=== PATIENT | male | born 1980 | race Caucasian/White ===

== ENCOUNTER 2020-02-17 18:56 | Emergency (ER) | payer OTHER ==
[2020-02-17] MEDS ORDERED: Clindamycin CAP* 150 MG PO ONE (20:31)
--- NOTE | 2020-02-17 20:38 | ED ---
Skin Complaint - HPI Summary HPI Summary: 39-year-old male presents with rash to the back in the past 4 days. He states area is more swollen. Area is very painful. Patient does have a history of an abscess to his neck. This does not look similar. He had two ticks two weeks but not in this location. He denies any fevers or chills. No chest pressure or shortness of breath. No cough. no recent travel. no exposure to anyone with known covid. He has a history of smoking. - History of Current Complaint Chief Complaint: EDRashSkinAbscess Time Seen by Provider: 02/17/20 20:05 Stated Complaint: ABCESS ON BACK PER PT Pain Intensity: 8 - Allergy/Home Medications Allergies/Adverse Reactions: Allergies Allergy/AdvReac Type Severity Reaction Status Date / Time No Known Allergies Allergy Verified 02/17/20 19:05 Home Medications: Home Medications Albuterol HFA INHALER* [Ventolin HFA Inhaler*] 2 puff INH Q6H PRN 02/17/20 [ History Confirmed 02/18/20] Clindamycin Cap(NF) [Clindamycin Cap 300 mg Cap(NF)] 300 mg PO TID #29 cap 02/16 [Rx Confirmed 02/18/20] Testosterone Cypionate 125 mg IM WEEKLY 02/18/20 [History Confirmed 02/18/20] PMH/Surg Hx/FS Hx/Imm Hx Endocrine/Hematology History: Denies: Hx Anticoagulant Therapy Respiratory History: Denies: Hx Asthma Infectious Disease History: No Infectious Disease History: Denies: Traveled Outside the [place] in Last 30 Days - Family History Known Family History: Positive: Non-Contributory - Social History Alcohol Use: None Substance Use Type: Reports: None 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 Smoking Status (MU): Former Smoker Review of Systems Negative: Fever Negative: Chest Pain Negative: Shortness Of Breath Positive: Rash All Other Systems Reviewed And Are Negative: Yes Physical Exam Triage Information Reviewed: Yes Vital Signs On Initial Exam: Initial Vitals Temp Pulse Resp BP Pulse Ox 99.8 F 97 18 169/101 91 02/17/20 19:02 02/17/20 19:02 02/17/20 19:02 02/17/20 19:02 02/17/20 19:02 Vital Signs Reviewed: Yes Appearance: Positive: Well-Appearing Skin: Positive: Warm, Dry, Other - white and purplish tissue surrouding by induration and erythema to back Head/Face: Positive: Normal Head/Face Inspection Eyes: Positive: Normal, Conjunctiva Clear ENT: Positive: Pharynx normal Respiratory/Lung Sounds: Positive: Clear to Auscultation, Breath Sounds Present Cardiovascular: Positive: Normal, RRR Musculoskeletal: Positive: Normal Neurological: Positive: Normal Psychiatric: Positive: Normal Procedures - Sedation Patient Received Moderate/Deep Sedation with Procedure: No - Incision and Drainage back Site: back Anesthesia: Local Instrument(s): Needle Diagnostics - Vital Signs Vital Signs Temp Pulse Resp BP Pulse Ox 02/17/20 19:02 99.8 F 97 18 169/101 91 - Laboratory Lab Statement: Any lab studies that have been ordered have been reviewed, and results considered in the medical decision making process. Course/Dx - Course Course Of Treatment: 39-year-old male presents with rash to the back in the past 4 days. He states area is more swollen. Area is very painful. Patient does have a history of an abscess to his neck. This does not look similar. He had two ticks two weeks but not in this location. He denies any fevers or chills. No chest pressure or shortness of breath. No cough. no recent travel. no exposure to anyone with known covid. He has a history of smoking. On exam lungs clear auscultation. Oxygen is between 91 and 94. he is not actively short of breath and is obese and smoker so this is likely his baseline. Has 3cm by 4cm area with whitish and purplish skin with erythema and induration around. Attempted a needle aspiration did not get anything beside blood. Debrided the area got some pus like discharge along with clear drainage. We'll have follow-up with care conditions or wound clinic. Will place on clindamycin. patient understands and agrees plan. - Differential Diagnoses - Skin Complaint Differential Diagnoses: Abscess, Cellulitis, Contact Dermatitis - Diagnoses Provider Diagnoses: Abscess of back - Critical Care Time Critical Care Statement: Critical care time is provided exclusive of any time spent performing procedures. Discharge ED - Sign-Out/Discharge Documenting (check all that apply): Patient Departure - Discharge Plan Condition: Good Disposition: HOME Prescriptions: Clindamycin Cap(NF) [Clindamycin Cap 300 mg Cap(NF)] 300 mg PO TID #29 cap Patient Education Materials: Abscess (ED) Referrals: Cooper Chicas MD [Medical Doctor] - [facility] [Outside] Additional Instructions: Take antibiotic three times a day for 10 days, first dose given in ED Apply warm compresses to area Take ibuprofen or Tylenol for pain every 6 hours Follow up with care [facility] or wound clinic Return to ED if develop fever, area of redness spreads, or any new or worsening symptoms - Billing Disposition and Condition Condition: GOOD Disposition: Home - Attestation Statements Provider Attestation: I was available for consultation for this patient. I did not evaluate the patient or participate in any medical decision making or disposition decisions unless I am specifically named in the chart as having consulted on the patient. If I have consulted on the patient, please see my own ED note on the patient encounter. Jaun Dhaliwal MD
[2020-02-17 20:44] VITALS: BP 140/104
== END 2020-02-17 20:56 | disposition home or self-care (01) ==
LOC: EDBD → ED 18:56
DX: L02.212 Cutaneous abscess of back [any part, except buttock and flank] (principal); R21 Rash and other nonspecific skin eruption; Z87.891 Personal history of nicotine dependence; Z79.890 Hormone replacement therapy; Z79.899 Other long term (current) drug therapy
CPT/HCPCS: 10060; 87070; 87077; 87205; 99282; A9270-GY

== ENCOUNTER 2020-02-18 19:16 | Emergency (ER) | payer OTHER ==
[2020-02-18] MEDS ORDERED: Clindamycin 600 MG/D5W BAG(*) 600 MG/50 ML BAG IV ONE (23:29)
--- NOTE | 2020-02-18 23:53 | ED ---
Skin Complaint - HPI Summary HPI Summary: 39-year-old male returns for recheck of his wound of his back. He states that the rash has not been spreading more. He states he may have had a fever last night. He does not currently have a fever. no chills. no chest pain or SOB. no cough. area has been draining yellow discharge. took clindamycin for a day. is not diabetic. is former IV drug user. - History of Current Complaint Chief Complaint: EDRashSkinAbscess Time Seen by Provider: 02/18/20 23:13 Stated Complaint: FEVER/PAIN IN BACK PER PT Pain Intensity: 4 - Allergy/Home Medications Allergies/Adverse Reactions: Allergies Allergy/AdvReac Type Severity Reaction Status Date / Time No Known Allergies Allergy Verified 02/17/20 19:05 Home Medications: Home Medications Albuterol HFA INHALER* [Ventolin HFA Inhaler*] 2 puff INH Q6H PRN 02/17/20 [ History Confirmed 02/18/20] Clindamycin Cap(NF) [Clindamycin Cap 300 mg Cap(NF)] 300 mg PO TID #29 cap 02/16 [Rx Confirmed 02/18/20] Testosterone Cypionate 125 mg IM WEEKLY 02/18/20 [History Confirmed 02/18/20] PMH/Surg Hx/FS Hx/Imm Hx Endocrine/Hematology History: Denies: Hx Anticoagulant Therapy Respiratory History: Denies: Hx Asthma Infectious Disease History: No Infectious Disease History: Denies: Traveled Outside the [place] in Last 30 Days - Family History Known Family History: Positive: Non-Contributory - Social History Alcohol Use: None Substance Use Type: Reports: None 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 Smoking Status (MU): Former Smoker Review of Systems Negative: Fever Negative: Chest Pain Negative: Shortness Of Breath Positive: Rash All Other Systems Reviewed And Are Negative: Yes Physical Exam Triage Information Reviewed: Yes Vital Signs On Initial Exam: Initial Vitals Temp Pulse Resp BP Pulse Ox 98.2 F 84 18 152/86 91 02/18/20 19:18 02/18/20 19:18 02/18/20 19:18 02/18/20 19:18 02/18/20 19:18 Vital Signs Reviewed: Yes Appearance: Positive: Well-Appearing Skin: Positive: Warm, Dry, Other - 4cm by 5cm area of erythema to back with induration, no flutuance felt Head/Face: Positive: Normal Head/Face Inspection Eyes: Positive: Normal, Conjunctiva Clear Respiratory/Lung Sounds: Positive: Clear to Auscultation, Breath Sounds Present Cardiovascular: Positive: Normal, RRR Musculoskeletal: Positive: Normal Neurological: Positive: Normal Psychiatric: Positive: Normal Procedures - Sedation Patient Received Moderate/Deep Sedation with Procedure: No Diagnostics - Vital Signs Vital Signs Temp Pulse Resp BP Pulse Ox 02/18/20 22:12 97.3 F 77 16 135/105 92 02/18/20 19:18 98.2 F 84 18 152/86 91 - Laboratory Result Diagrams: 02/18/20 23:53 Lab Statement: Any lab studies that have been ordered have been reviewed, and results considered in the medical decision making process. Course/Dx - Course Course Of Treatment: 39-year-old male returns for recheck of his wound of his back. He states that the rash has not been spreading more. He states he may have had a fever last night. He does not currently have a fever. no chills. no chest pain or SOB. no cough. area has been draining yellow discharge. took clindamycin for a day. is not diabetic. is former IV drug user. on exam has 4cm by 5cm area of erythema and induration to left side of back. no flatulence. area does not appear any worst than yesterday. attempted to get labs and unable to get cbc. as vitals stable and does not appear any worst while have continue clindamycin. will have apply bacitrician to wound. told follow up with wound clinic or [facility]. patient understand and agrees with plan. - Differential Diagnoses - Skin Complaint Differential Diagnoses: Abscess, Cellulitis, Contact Dermatitis - Diagnoses Provider Diagnoses: Cellulitis of back - Critical Care Time Critical Care Statement: Critical care time is provided exclusive of any time spent performing procedures. Discharge ED - Sign-Out/Discharge Documenting (check all that apply): Patient Departure - Discharge Plan Condition: Good Disposition: HOME Referrals: [facility] [Outside] Additional Instructions: continue antibiotic Apply bacitrician to area Follow up with wound clinic: phone number is [phone] or [facility] Return to ED if develop any new or worsening symptom - Billing Disposition and Condition Condition: GOOD Disposition: Home
[2020-02-19 00:26] LABS: Albumin 4.4 g/dL (3.2-5.2); CO2 Carbon Dioxide 34 mmol/L (22-32); Calcium 9.1 mg/dL (8.6-10.3); Chloride 95 mmol/L (101-111); Sodium 133 mmol/L (135-145)
[2020-02-19 00:32] LABS: ALT 25 U/L (7-52); Albumin/Globulin Ratio 1.1 (1-3); Alkaline Phosphatase 67 U/L (34-104); BUN/Creatinine Ratio 12.8 (8-20); Blood Urea Nitrogen 11 mg/dL (6-24); C Reactive Protein 134.59 mg/L (<8.01); EGFR African American 119.8 (>60); Glucose 79 mg/dL (70-100); Total Protein 8.4 g/dL (6.4-8.9)
[2020-02-19 00:37] LABS: Anion Gap 4 mmol/L (2-11)
[2020-02-19] MEDS ORDERED: Cephalexin CAP* 500 MG PO ONE (01:01)
[2020-02-19] MEDS ORDERED: Sulfamethox/Trimethoprim DS 800/160* TAB PO ONE (01:01)
[2020-02-19] MEDS ORDERED: Bacitracin OINTMENT* 0.5% 0.5 oz TUBE TOPICAL ONE (01:12)
[2020-02-19 01:23] VITALS: BP 130/92
== END 2020-02-19 01:22 | disposition home or self-care (01) ==
LOC: ED 19:16
DX: L03.312 Cellulitis of back [any part except buttock and flank] (principal); R21 Rash and other nonspecific skin eruption; Z87.891 Personal history of nicotine dependence; Z79.890 Hormone replacement therapy; Z79.899 Other long term (current) drug therapy
CPT/HCPCS: 36415; 80053; 86140; 99282; A9270-GY